=== PATIENT | male | born 1950 | race Caucasian/White ===

== ENCOUNTER 2019-10-28 08:14 | Emergency (ER) | payer BC, MEDICARE ==
--- NOTE | 2019-10-28 08:50 | EDM.PDOC ---
ED HPI GENERAL MEDICAL PROBLEM - General Chief Complaint: Chest Pain Stated Complaint: RIGHT RIB PAIN Time Seen by Provider: 10/28/19 08:40 - History of Present Illness INITIAL COMMENTS - FREE TEXT/NARRATIVE: 69-year-old male presents the emergency room with left lower chest and upper abdominal pain This pain started last evening. It is aggravated by deep breathing and coughing. The patient has had bronchitis for a little over a week. He saw his regular provider last week who started him on an antibiotic some prednisone and cough syrup. His cough is getting better but now is developed this left anterior chest and upper abdominal pain. Patient has no history of coronary artery disease and otherwise denies any significant medical issues. Patient denies any fevers has not had any nausea vomiting the patient or diarrhea. Patient thinks he is in pretty good health otherwise. Left Lower Chest Pain Score (Numeric/FACES): 10 - Related Data Allergies Allergy/AdvReac Type Severity Reaction Status Date / Time No Known Allergies Allergy Verified 10/28/19 08:27 Home Meds: Home Meds Acetaminophen [Tylenol] 10/28/19 [History] Acetaminophen/HYDROcodone [[place] 325-5 MG] 1 - 2 tab PO Q6H PRN #20 tablet 10/28 [Rx] Amoxicillin 10/28/19 [History] Codeine/Promethazine [Phenergan with Codeine] 10/28/19 [History] predniSONE 40 mg PO ASDIRECTED #10 tab 10/28/19 [Rx] predniSONE [Prednisone] 10/28/19 [History] Past Medical History - Past Health History Medical/Surgical History: Denies Medical/Surgical History Respiratory History: Reports: Bronchitis, Recurrent - Past Surgical History Musculoskeletal Surgical History: Reports: Joint Replacement, Knee Replacement, Shoulder Replacement, Shoulder Surgery Social & Family History - Tobacco Use Smoking Status *Q: Former Smoker Used Tobacco, but Quit: Yes Month/Year Tobacco Last Used: 1 ED ROS GENERAL - Review of Systems Review Of Systems: See Below Constitutional: Reports: No Symptoms, Weight Gain Respiratory: Reports: Pleuritic Chest Pain, Cough. Denies: Shortness of Breath , Wheezing, Sputum Cardiovascular: Reports: Chest Pain (Usually worse with coughing and change position) Endocrine: Reports: No Symptoms GI/Abdominal: Reports: Abdominal Pain. Denies: Constipation, Diarrhea, Nausea, Vomiting : Reports: No Symptoms Musculoskeletal: Reports: Other (Chest wall pain) Skin: Reports: No Symptoms Neurological: Reports: No Symptoms ED EXAM, GENERAL - Physical Exam Exam: See Below Exam Limited By: No Limitations General Appearance: Alert, No Apparent Distress Head: Atraumatic, Normocephalic Neck: Normal Inspection, Supple, Non-Tender, Full Range of Motion. No: Lymphadenopathy (L), Lymphadenopathy (R) Respiratory/Chest: No Respiratory Distress, Lungs Clear, Normal Breath Sounds, Other (Patient of the chest show some discomfort left lower ribs lateral position and moving anterior however anterior rib palpation does not elicit the pain) Cardiovascular: Regular Rate, Rhythm, No Edema, Systolic Murmur (He has a 2/6 systolic murmur heard in the inferior left sternal border along the lower margin of the heart to the apex) GI/Abdominal: Normal Bowel Sounds, Soft, Tender (He has some tenderness in the left upper quadrant below the ribs.), Other (Patient has significant obesity). No: Guarding, Rigid, Rebound Back Exam: Normal Inspection. No: CVA Tenderness (L), CVA Tenderness (R) Extremities: No Pedal Edema, Other (No calf tenderness) Course - Vital Signs Last Recorded V/S: Last Vital Signs Temp 36.9 C 10/28/19 08:28 Pulse 81 10/28/19 08:28 Resp 16 10/28/19 08:28 BP 188/106 H 10/28/19 08:28 Pulse Ox 96 10/28/19 08:28 - Orders/Labs/Meds Orders: Active Orders 24 hr Category Date Time Status EKG Documentation Completion [RC] STAT Care 10/28/19 08:52 Active Ang Chest [CT] Stat Exams 10/28/19 11:07 Taken Sodium Chloride 0.9% [Normal Saline] 100 ml Med 10/28/19 11:30 Active IV ASDIRECTED Sodium Chloride 0.9% [Saline Flush] Med 10/28/19 11:19 Active 10 ml FLUSH ONETIME PRN Medication Orders Sodium Chloride (Normal Saline) 100 mls @ 60 mls/hr IV ASDIRECTED KATHERYN Last Admin: 10/28/19 11:26 Dose: 60 mls/hr Sodium Chloride (Saline Flush) 10 ml FLUSH ONETIME PRN PRN Reason: Keep Vein Open Last Admin: 10/28/19 11:26 Dose: 10 ml Labs: Laboratory Tests 10/28/19 10/28/19 10/28/19 Range/Units 09:22 09:22 09:22 WBC 5.45 (4.23-9.07) K/mm3 RBC 4.98 (4.63-6.08) M/mm3 Hgb 15.0 (13.7-17.5) gm/dl Hct 47.5 (40.1-51.0) % MCV 95.4 H (79.0-92.2) fl MCH 30.1 (25.7-32.2) pg MCHC 31.6 L (32.2-35.5) g/dl RDW Std Deviation 46.9 H (35.1-43.9) fL Plt Count 205 (163-337) K/mm3 MPV 8.8 L (9.4-12.3) fl Neut % (Auto) 74.0 H (34.0-67.9) % Lymph % (Auto) 17.4 L (21.8-53.1) % Ida % (Auto) 7.3 (5.3-12.2) % Eos % (Auto) 0.9 (0.8-7.0) Baso % (Auto) 0.2 (0.1-1.2) % Neut # (Auto) 4.03 (1.78-5.38) K/mm3 Lymph # (Auto) 0.95 L (1.32-3.57) K/mm3 Ida # (Auto) 0.40 (0.30-0.82) K/mm3 Eos # (Auto) 0.05 (0.04-0.54) K/mm3 Baso # (Auto) 0.01 (0.01-0.08) K/mm3 PT 10.6 (9.7-12.0) SECONDS INR 0.97 APTT 26 (22-31) SECONDS D-Dimer, Quantitative (0.19-0.50) mg/L Sodium 136 (136-145) mEq/L Potassium 4.6 (3.5-5.1) mEq/L Chloride 103 (98-107) mEq/L Carbon Dioxide 25 (21-32) mEq/L Anion Gap 12.6 (5-15) BUN 27 H (7-18) mg/dL Creatinine 1.0 (0.7-1.3) mg/dL Est Cr Clr Drug Dosing TNP Estimated GFR (MDRD) > 60 (>60) mL/min BUN/Creatinine Ratio 27.0 H (14-18) Glucose 122 H (80-115) mg/dL Calcium 8.6 (8.5-10.1) mg/dL Total Bilirubin 0.5 (0.2-1.0) mg/dL AST 11 L (15-37) U/L ALT 21 (16-63) U/L Alkaline Phosphatase 102 (46-116) U/L Troponin I < 0.017 (0.00-0.056) ng/mL Total Protein 7.4 (6.4-8.2) g/dl Albumin 3.6 (3.4-5.0) g/dl Globulin 3.8 gm/dL Albumin/Globulin Ratio 1.0 (1-2) Lipase 87 (73-393) U/L Urine Color (Yellow) Urine Appearance (Clear) Urine pH (5.0-8.0) Ur Specific [place] (1.005-1.030) Urine Protein (Negative) Urine Glucose (UA) (Negative) Urine Ketones (Negative) Urine Occult Blood (Negative) Urine Nitrite (Negative) Urine Bilirubin (Negative) Urine Urobilinogen (0.2-1.0) Ur Leukocyte Esterase (Negative) 10/28/19 10/28/19 Range/Units 09:22 10:57 WBC (4.23-9.07) K/mm3 RBC (4.63-6.08) M/mm3 Hgb (13.7-17.5) gm/dl Hct (40.1-51.0) % MCV (79.0-92.2) fl MCH (25.7-32.2) pg MCHC (32.2-35.5) g/dl RDW Std Deviation (35.1-43.9) fL Plt Count (163-337) K/mm3 MPV (9.4-12.3) fl Neut % (Auto) (34.0-67.9) % Lymph % (Auto) (21.8-53.1) % Ida % (Auto) (5.3-12.2) % Eos % (Auto) (0.8-7.0) Baso % (Auto) (0.1-1.2) % Neut # (Auto) (1.78-5.38) K/mm3 Lymph # (Auto) (1.32-3.57) K/mm3 Ida # (Auto) (0.30-0.82) K/mm3 Eos # (Auto) (0.04-0.54) K/mm3 Baso # (Auto) (0.01-0.08) K/mm3 PT (9.7-12.0) SECONDS INR APTT (22-31) SECONDS D-Dimer, Quantitative 1.19 H (0.19-0.50) mg/L Sodium (136-145) mEq/L Potassium (3.5-5.1) mEq/L Chloride (98-107) mEq/L Carbon Dioxide (21-32) mEq/L Anion Gap (5-15) BUN (7-18) mg/dL Creatinine (0.7-1.3) mg/dL Est Cr Clr Drug Dosing Estimated GFR (MDRD) (>60) mL/min BUN/Creatinine Ratio (14-18) Glucose (80-115) mg/dL Calcium (8.5-10.1) mg/dL Total Bilirubin (0.2-1.0) mg/dL AST (15-37) U/L ALT (16-63) U/L Alkaline Phosphatase (46-116) U/L Troponin I (0.00-0.056) ng/mL Total Protein (6.4-8.2) g/dl Albumin (3.4-5.0) g/dl Globulin gm/dL Albumin/Globulin Ratio (1-2) Lipase (73-393) U/L Urine Color Yellow (Yellow) Urine Appearance Clear (Clear) Urine pH 6.0 (5.0-8.0) Ur Specific [place] > or = 1.030 (1.005-1.030) Urine Protein Negative (Negative) Urine Glucose (UA) Negative (Negative) Urine Ketones Negative (Negative) Urine Occult Blood Negative (Negative) Urine Nitrite Negative (Negative) Urine Bilirubin Negative (Negative) Urine Urobilinogen 0.2 (0.2-1.0) Ur Leukocyte Esterase Negative (Negative) Meds: Medications Generic Name Dose Route Start Last Admin Trade Name Freq PRN Reason Stop Dose Admin Sodium Chloride 100 mls @ 60 mls/hr 10/28/19 11:30 10/28/19 11:26 Normal Saline IV 60 mls/hr ASDIRECTED KATHERYN Administration Sodium Chloride 10 ml 10/28/19 11:19 10/28/19 11:26 Saline Flush FLUSH 10 ml ONETIME PRN Administration Keep Vein Open Discontinued Medications Generic Name Dose Route Start Last Admin Trade Name Freq PRN Reason Stop Dose Admin Sodium Chloride 500 mls @ 999 mls/hr 10/28/19 11:06 10/28/19 11:16 Normal Saline IV 10/28/19 11:36 999 mls/hr .BOLUS ONE Administration Iopamidol 100 ml 10/28/19 11:19 10/28/19 11:26 [id number] (76%) IVPUSH 10/28/19 11:20 100 ml ONETIME ONE Administration Iopamidol 50 ml 10/28/19 11:27 10/28/19 11:29 Isovue-370 (76%) IVPUSH 10/28/19 11:28 50 ml ONETIME ONE Administration - Re-Assessments/Exams Free Text/Narrative Re-Assessment/Exam: 10/28/19 12:31 Laboratory evaluation does not really show any smoking cons except his d-dimer was a little elevated this was followed up with a chest CTA which again showed cardiomegaly and some aortic valvular disease however no PE or right heart strain. The patient is started prednisone 10 mg twice a day yesterday M&Ms stopped this him and put on 40 mg now then 40 mg a day for the next 5 days. And then have him stop this and will give him a few hydrocodone for the pain with close follow-up in the clinic and with his cardiomegaly I believe he is best served to have an echo done get a better assessment of was going on with his valvular heart disease has had a murmur all his life CT shows evidence of aortic valvular disease. A stress test should also be strongly considered. Departure - Departure Time of Disposition: 12:36 Disposition: Home, Self-Care 01 Clinical Impression: Chest pain, pleuritic, Valvular heart disease, Cardiomegaly - Discharge Information Prescriptions: Acetaminophen/HYDROcodone [[place] 325-5 MG] 1 - 2 tab PO Q6H PRN #20 tablet PRN Reason: Pain predniSONE 40 mg PO ASDIRECTED #10 tab Referrals: Malena Mercado NP [Primary Care Provider] - Forms: ED Department Discharge, ED Return to Work/School Form Additional Instructions: Turn to the emergency room with any questions problems or worsening symptoms. Follow-up with your regular provider in the middle of this next week. Discuss possible stress testing. I strongly suggest you get a echocardiogram to assess your cardiomegaly and potential valvular disease. Use the pain medication as directed. Stop the prednisone you started yesterday I am gave you a prescription for a little stronger dose. Take the new prescription in the morning only just before breakfast. Sepsis Event Note - Evaluation Sepsis Screening Result: No Definite Risk - Focused Exam Vital Signs: Vital Signs Temp Pulse Resp BP Pulse Ox 10/28/19 08:28 36.9 C 81 16 188/106 H 96 Date Exam was Performed: 10/28/19 Time Exam was Performed: 12:30 - My Orders Last 24 Hours: My Active Orders 10/28/19 08:52 EKG Documentation Completion [RC] STAT 10/28/19 11:07 Ang Chest [CT] Stat 10/28/19 11:19 Sodium Chloride 0.9% [Saline Flush] 10 ml FLUSH ONETIME PRN 10/28/19 11:30 Sodium Chloride 0.9% [Normal Saline] 100 ml IV ASDIRECTED - Assessment/Plan Last 24 Hours: My Active Orders 10/28/19 08:52 EKG Documentation Completion [RC] STAT 10/28/19 11:07 Ang Chest [CT] Stat 10/28/19 11:19 Sodium Chloride 0.9% [Saline Flush] 10 ml FLUSH ONETIME PRN 10/28/19 11:30 Sodium Chloride 0.9% [Normal Saline] 100 ml IV ASDIRECTED
--- NOTE | 2019-10-28 09:37 | CR ---
Chest: 2 views of the chest were obtained. Comparison: Prior chest x-ray of 11/24/14. Heart is enlarged. Tortuous or aneurysmal aorta is seen. Pulmonary vessels are increased. Lungs otherwise are clear. Prior right shoulder surgery is noted. Bony structures are otherwise unremarkable. Impression: 1. Cardiomegaly with pulmonary vascular congestion felt compatible with very mild CHF. 2. Tortuous or aneurysmal aorta. 3. Other findings which are believed to be incidental. Diagnostic code #3 Study was dictated in [place] Standard Time
[2019-10-28] MEDS ORDERED: Sodium Chloride 0.9% 500 ML IV ONE (11:06)
[2019-10-28] MEDS ORDERED: Sodium Chloride 0.9% 10 ML Syringe FLUSH PRN (11:19)
[2019-10-28] MEDS ORDERED: Iopamidol 755 Mg/ML 100 ML Bottle IVPUSH ONE (11:19)
[2019-10-28] MEDS ORDERED: Iopamidol 755 MG/ML 50 ML Bottle IVPUSH ONE (11:27)
[2019-10-28] MEDS ORDERED: Sodium Chloride 0.9% 100 ML IV SCH (11:30)
[2019-10-28 13:06] VITALS: BP 158/89; PULSE 82
--- NOTE | 2019-10-28 15:24 | CT ---
CT chest Technique: Multiple axial sections were obtained from above the lung apices inferiorly through the lung bases. Intravenous contrast was utilized. Study has been performed as a pulmonary angiogram protocol. Comparison: No prior chest CT, previous chest x-ray performed on the same day at the time 8:52 AM. Findings: Aorta shows no aneurysm. No dissection is seen within the thoracic aorta. Heart is mildly enlarged. Mild coronary artery calcification is seen. Visualized upper abdominal structures shows a large cyst within the upper left kidney measuring 8.7 cm. Nothing acute is appreciated within the visualized upper abdominal structures. Mediastinum and hilar region show no adenopathy or mass. Pulmonary arteries are moderately well opacified. No filling defects are seen to indicate pulmonary embolism. Lungs show slight haziness most likely relating to poor inspiratory study. No definite consolidating parenchymal densities are seen. No pleural effusions are seen. Bone window settings were reviewed which show scattered degenerative change within the spine. No acute osseous finding is appreciated. Calcification is seen within the aortic annulus. Impression: 1. Heart is mildly enlarged with mild coronary artery calcification. Mild aortic annulus calcification is also noted. 2. No findings of pulmonary embolism. 3. Other findings as noted above believed to be incidental. 4. Overall, nothing acute is appreciated. Diagnostic code #3 This report was dictated in [place] Standard Time I agree with preliminary report from [facility], finalized on 10/28/19, 12:51 PM Central Time
== END 2019-10-28 13:04 | disposition home or self-care (01) ==
LOC: JD.ED 08:14
DX: I51.7 Cardiomegaly (principal); I38 Endocarditis, valve unspecified; Z87.891 Personal history of nicotine dependence
CPT/HCPCS: 36415; 71046; 71275; 80053; 81003; 83690; 84484; 85025; 85379; 85610; 85730; 93005; 96360; 96361; 99284; J7030; J7050; Q9967; 93010

== ENCOUNTER 2020-01-17 06:00 | Emergency (ER) | payer BC, MEDICARE ==
--- NOTE | 2020-01-17 06:32 | EDM.PDOC ---
ED HPI GENERAL MEDICAL PROBLEM - General Chief Complaint: Genitourinary Problem Stated Complaint: UNABLE TO URINATE Time Seen by Provider: 01/17/20 06:32 - History of Present Illness INITIAL COMMENTS - FREE TEXT/NARRATIVE: 69-year-old male presents to the emergency room with inability to void. Apparently the patient has had problems with this on and on and off basis. He is never required a catheter. He states that he has had problems emptying then eventually would straighten itself out. At this time it has not. The patient early yesterday evening noticed difficulty voiding he would dribble some but as he developed some lower abdominal discomfort this became worse and now nothing will come out. Patient is never been treated for prostate problems currently he is not taking any routine medications. Past medical history significant mostly for orthopedic surgeries. He has not had any chest pain chest pressure or breathing difficulties or shortness of breath no nausea no vomiting prior to this history of present illness he has not had any burning or frequency with urination. Lower Abdomen Pain Score (Numeric/FACES): 5 - Related Data Allergies Allergy/AdvReac Type Severity Reaction Status Date / Time No Known Allergies Allergy Verified 01/17/20 06:10 Home Meds: Home Meds Tamsulosin [Tamsulosin 24 Hr] 0.4 mg PO Q24H #30 cap.er 01/17/20 [Rx] Past Medical History - Past Health History Medical/Surgical History: Denies Medical/Surgical History Respiratory History: Reports: Bronchitis, Recurrent - Past Surgical History Musculoskeletal Surgical History: Reports: Joint Replacement, Knee Replacement, Shoulder Replacement, Shoulder Surgery Social & Family History - Tobacco Use Smoking Status *Q: Never Smoker Second Hand Smoke Exposure: No - Recreational Drug Use Recreational Drug Use: No ED ROS GENERAL - Review of Systems Review Of Systems: See Below Constitutional: Reports: No Symptoms. Denies: Fever, Chills HEENT: Reports: No Symptoms Respiratory: Reports: No Symptoms Cardiovascular: Reports: No Symptoms Endocrine: Reports: No Symptoms GI/Abdominal: Denies: Constipation, Diarrhea, Nausea, Vomiting : Reports: No Symptoms Musculoskeletal: Reports: No Symptoms Skin: Reports: No Symptoms Neurological: Reports: No Symptoms ED EXAM, RENAL/ - Physical Exam Exam: See Below Exam Limited By: No Limitations General Appearance: Alert, No Apparent Distress, Obese Head: Atraumatic, Normocephalic Neck: Normal Inspection, Supple, Non-Tender, Full Range of Motion Respiratory/Chest: No Respiratory Distress, Lungs Clear, Normal Breath Sounds Cardiovascular: Regular Rate, Rhythm, No Edema, No Murmur GI/Abdominal: Normal Bowel Sounds, Soft, Other (He is got some midline lower abdominal discomfort otherwise unremarkable exam his body habitus does lead to some limitations to his abdominal exam however) Course - Vital Signs Last Recorded V/S: Last Vital Signs Temp 36.2 C 01/17/20 06:07 Pulse 74 01/17/20 06:07 Resp 20 01/17/20 06:07 BP 180/98 H 01/17/20 06:07 Pulse Ox 95 01/17/20 06:07 - Orders/Labs/Meds Orders: Active Orders 24 hr Category Date Time Status Bladder Scan [RC] ASDIRECTED Care 01/17/20 06:25 Active [place] Catheter Insertion [Insert Urinary Catheter] [OM. Care 01/17/20 06:45 Ordered PC] Q24H Insert [place] Catheter [Insert Urinary Catheter] [OM.PC] Care 01/17/20 06:45 Ordered Q24H Urinary Catheter Assessment [RC] ASDIRECTED Care 01/17/20 06:44 Active Urinary Catheter Assessment [RC] ASDIRECTED Care 01/17/20 06:44 Active UA W/MICROSCOPIC [URIN] Stat Lab 01/17/20 06:50 Results Labs: Laboratory Tests 01/17/20 Range/Units 06:50 Urine Color Yellow (Yellow) Urine Appearance Clear (Clear) Urine pH 6.5 (5.0-8.0) Ur Specific [place] 1.025 (1.005-1.030) Urine Protein Negative (Negative) Urine Glucose (UA) Negative (Negative) Urine Ketones Negative (Negative) Urine Occult Blood Trace-intact H (Negative) Urine Nitrite Negative (Negative) Urine Bilirubin Negative (Negative) Urine Urobilinogen 1.0 (0.2-1.0) Ur Leukocyte Esterase Negative (Negative) Meds: Medications Discontinued Medications Generic Name Dose Route Start Last Admin Trade Name Freq PRN Reason Stop Dose Admin Tamsulosin HCl 0.4 mg 01/17/20 06:45 01/17/20 07:13 Flomax PO 01/17/20 06:46 0.4 mg ONETIME ONE Administration - Re-Assessments/Exams Free Text/Narrative Re-Assessment/Exam: 01/17/20 06:57 Patient was bladder scanned yielding a volume of [address] a indwelling catheter and see if we can get him feeling better the patient will be started on Flomax 01/17/20 07:05 The patient had a #14 Cou[place] catheter placed and has well over 500 cc out at this time patient feels much better. 01/17/20 07:19 Urinalysis shows some trace blood negative for leukocyte Estrace or nitrates. At this point we will discharge home with catheter in place Departure - Departure Time of Disposition: 07:19 Disposition: Home, Self-Care 01 Clinical Impression: Urinary obstruction - Discharge Information Prescriptions: Tamsulosin [Tamsulosin 24 Hr] 0.4 mg PO Q24H #30 cap.er Referrals: Malena Mercado NP [Primary Care Provider] - Forms: ED Department Discharge Additional Instructions: Return to the emergency room with any questions problems or worsening symptoms. You have been started on a medication to help shrink up your prostate and to help relax your urinary tract. Take these once daily your first dose was given here in the emergency room. Follow-up with your regular healthcare provider on Tuesday of next week to have the catheter removed. Sepsis Event Note - Evaluation Sepsis Screening Result: No Definite Risk - Focused Exam Vital Signs: Vital Signs Temp Pulse Resp BP Pulse Ox 01/17/20 06:07 36.2 C 74 20 180/98 H 95 Date Exam was Performed: 01/17/20 Time Exam was Performed: 07:19 - My Orders Last 24 Hours: My Active Orders 01/17/20 06:25 Bladder Scan [RC] ASDIRECTED 01/17/20 06:44 Urinary Catheter Assessment [RC] ASDIRECTED Urinary Catheter Assessment [RC] ASDIRECTED 01/17/20 06:45 [place] Catheter Insertion [Insert Urinary Catheter] [OM.PC] Q24H Insert [place] Catheter [Insert Urinary Catheter] [OM.PC] Q24H 01/17/20 06:50 UA W/MICROSCOPIC [URIN] Stat - Assessment/Plan Last 24 Hours: My Active Orders 01/17/20 06:25 Bladder Scan [RC] ASDIRECTED 01/17/20 06:44 Urinary Catheter Assessment [RC] ASDIRECTED Urinary Catheter Assessment [RC] ASDIRECTED 01/17/20 06:45 [place] Catheter Insertion [Insert Urinary Catheter] [OM.PC] Q24H Insert [place] Catheter [Insert Urinary Catheter] [OM.PC] Q24H 01/17/20 06:50 UA W/MICROSCOPIC [URIN] Stat
[2020-01-17] MEDS ORDERED: Tamsulosin 0.4 MG Cap.ER PO ONE (06:45)
[2020-01-17 08:29] VITALS: BP 154/103; PULSE 72
== END 2020-01-17 08:03 | disposition home or self-care (01) ==
LOC: JD.ED 06:00
DX: N13.9 Obstructive and reflux uropathy, unspecified (principal)
CPT/HCPCS: 51702; 51798; 81001; 99282; 99283; A9270-GY

== ENCOUNTER 2020-01-17 14:18 | Emergency (ER) | payer BC, MEDICARE ==
[2020-01-17 14:25] VITALS: BP 175/90; PULSE 84
--- NOTE | 2020-01-17 14:33 | EDM.PDOC ---
ED HPI GENERAL MEDICAL PROBLEM - General Chief Complaint: Genitourinary Problem Stated Complaint: LEAKING CATHETER Time Seen by Provider: 01/17/20 14:20 Source of Information: Reports: Patient History Limitations: Reports: No Limitations - History of Present Illness INITIAL COMMENTS - FREE TEXT/NARRATIVE: Patient is a 69-year-old male who presents with complaints of leaking from his Vallejo catheter. He was seen in the emergency department this morning for urinary retention and a 14 Romanian Vallejo catheter was inserted. He states that he went home and fell asleep in his recliner. When he woke up he had urine saturated on his pants and underwear. There was also urine in the leg bag. He denies any blood in his urine. He also states that the Vallejo catheter has been somewhat uncomfortable. He has had a catheter in the past and states that this 1 seems more uncomfortable than he remembers. - Related Data Allergies Allergy/AdvReac Type Severity Reaction Status Date / Time No Known Allergies Allergy Verified 01/17/20 14:26 Home Meds: Home Meds Tamsulosin [Tamsulosin 24 Hr] 0.4 mg PO Q24H #30 cap.er 01/17/20 [Rx] Past Medical History - Past Health History Medical/Surgical History: Denies Medical/Surgical History Respiratory History: Reports: Bronchitis, Recurrent - Past Surgical History Musculoskeletal Surgical History: Reports: Joint Replacement, Knee Replacement, Shoulder Replacement, Shoulder Surgery Social & Family History - Tobacco Use Smoking Status *Q: Never Smoker Second Hand Smoke Exposure: No - Caffeine Use Caffeine Use: Reports: None - Recreational Drug Use Recreational Drug Use: No ED ROS GENERAL - Review of Systems Review Of Systems: Comprehensive ROS is negative, except as noted in HPI. ED EXAM, RENAL/ - Physical Exam Exam: See Below Exam Limited By: No Limitations General Appearance: Alert, WD/WN, No Apparent Distress Respiratory/Chest: No Respiratory Distress, Lungs Clear, Normal Breath Sounds, No Accessory Muscle Use, Chest Non-Tender Cardiovascular: Normal Peripheral Pulses, Regular Rate, Rhythm, No Edema, No Gallop, No JVD, No Murmur, No Rub Neurological: Alert, Oriented, CN II-XII Intact, Normal Cognition, Normal Gait, Normal Reflexes, No Motor/Sensory Deficits Psychiatric: Normal Affect, Normal Mood Skin Exam: Warm, Dry, Intact, Normal Color, No Rash Course - Vital Signs Last Recorded V/S: Last Vital Signs Temp 97.4 F 01/17/20 14:23 Pulse 84 01/17/20 14:23 Resp 19 01/17/20 14:23 BP 175/90 H 01/17/20 14:23 Pulse Ox 93 L 01/17/20 14:23 - Orders/Labs/Meds Orders: Active Orders 24 hr Category Date Time Status Insert Vallejo Catheter [Insert Urinary Catheter] [OM.PC] Care 01/17/20 14:45 Ordered Q24H Urinary Catheter Assessment [RC] ASDIRECTED Care 01/17/20 14:32 Active Meds: Medications Discontinued Medications Generic Name Dose Route Start Last Admin Trade Name Freq PRN Reason Stop Dose Admin Lidocaine HCl 10 ml 01/17/20 15:18 01/17/20 15:38 Xylocaine 2% Jelly MUCMEM 01/17/20 15:19 10 ml ONETIME ONE Administration - Re-Assessments/Exams Free Text/Narrative Re-Assessment/Exam: 01/17/20 16:07 Vallejo catheter was removed and replaced with a slightly larger, 16 Romanian, Vallejo catheter. Catheter is flowing well. Patient states that it feels much more comfortable than the previous catheter. We will discharge him home with instructions to return if he encounters any difficulties. Discharge instructions as documented. Departure - Departure Time of Disposition: 16:07 Disposition: Home, Self-Care 01 Condition: Good Clinical Impression: Vallejo catheter problem Qualifiers: Encounter type: initial encounter Qualified Code(s): T83.9XXA - Unspecified complication of genitourinary prosthetic device, implant and graft, initial encounter - Discharge Information *PRESCRIPTION DRUG MONITORING PROGRAM REVIEWED*: No *COPY OF PRESCRIPTION DRUG MONITORING REPORT IN PATIENT CATHLEEN: No Instructions: Indwelling Urinary Catheter Care, Adult Referrals: Malena Mercado NP [Primary Care Provider] - Forms: ED Department Discharge, ED Return to Work/School Form Additional Instructions: You were seen in the emergency department today because your Vallejo catheter was leaking. The catheter was removed and replaced with a slightly larger catheter tube. It has been flowing well since insertion. If you experience any further difficulties or if the catheter begins to leak, please not hesitate to return to the emergency department. Sepsis Event Note - Evaluation Sepsis Screening Result: No Definite Risk - Focused Exam Vital Signs: Vital Signs Temp Pulse Resp BP Pulse Ox 01/17/20 14:23 97.4 F 84 19 175/90 H 93 L Date Exam was Performed: 01/17/20 Time Exam was Performed: 19:19 - My Orders Last 24 Hours: My Active Orders 01/17/20 14:32 Urinary Catheter Assessment [RC] ASDIRECTED 01/17/20 14:45 Insert Vallejo Catheter [Insert Urinary Catheter] [OM.PC] Q24H - Assessment/Plan Last 24 Hours: My Active Orders 01/17/20 14:32 Urinary Catheter Assessment [RC] ASDIRECTED 01/17/20 14:45 Insert Vallejo Catheter [Insert Urinary Catheter] [OM.PC] Q24H
[2020-01-17] MEDS ORDERED: Lidocaine 2% Jelly 10 ML Urojet MUCMEM ONE (15:18)
== END 2020-01-17 16:20 | disposition home or self-care (01) ==
LOC: JD.ED 14:18
DX: T83.038A Leakage of other urinary catheter, initial encounter (principal)
CPT/HCPCS: 51702; 99282; 99283

== ENCOUNTER 2020-03-15 16:47 | Emergency (ER) | payer MEDICARE, BC ==
[2020-03-15 16:57] VITALS: BP 205/108; PULSE 81
[2020-03-15] MEDS ORDERED: Lidocaine 2% Jelly 10 ML Urojet MUCMEM ONE (17:07)
--- NOTE | 2020-03-15 17:20 | EDM.PDOC ---
ED HPI GENERAL MEDICAL PROBLEM - General Chief Complaint: Genitourinary Problem Stated Complaint: UNABLE TO URINATE Time Seen by Provider: 03/15/20 16:55 Source of Information: Reports: Patient History Limitations: Reports: No Limitations - History of Present Illness INITIAL COMMENTS - FREE TEXT/NARRATIVE: Patient is a 69-year-old male presented to the ER with complaints of acute urinary retention. He had surgery put on the nerves in his left arm yesterday, and since that time he has been unable to void other than small amount of dribbling. He does have a history of BPH requiring indwelling catheter in the past, however states once he started Flomax his symptoms resolved. His last good void was around 10:00 tomorrow which was before surgery. At this time he feels like his bladder is full is uncomfortable. He does not think he had a urinary catheter during surgery, however he did have full sedation. He has an appointment scheduled with his urologist on Tuesday this coming week. Lower Abdomen Pain Score (Numeric/FACES): 9 - Related Data Allergies Allergy/AdvReac Type Severity Reaction Status Date / Time No Known Allergies Allergy Verified 03/15/20 16:57 Home Meds: Home Meds Tamsulosin [Tamsulosin 24 Hr] 0.4 mg PO Q24H #30 cap.er 01/17/20 [Rx] Cyclobenzaprine HCl 10 mg PO DAILY 03/15/20 [History] Meloxicam 15 mg PO DAILY 03/15/20 [History] Past Medical History - Past Health History Medical/Surgical History: Denies Medical/Surgical History Respiratory History: Reports: Bronchitis, Recurrent - Past Surgical History Musculoskeletal Surgical History: Reports: Joint Replacement, Knee Replacement, Shoulder Replacement, Shoulder Surgery Social & Family History - Tobacco Use Smoking Status *Q: Former Smoker Used Tobacco, but Quit: Yes Month/Year Tobacco Last Used: 25 years - Caffeine Use Caffeine Use: Reports: None - Recreational Drug Use Recreational Drug Use: No ED ROS GENERAL - Review of Systems Review Of Systems: Comprehensive ROS is negative, except as noted in HPI. ED EXAM, RENAL/ - Physical Exam Exam: See Below Exam Limited By: No Limitations General Appearance: Alert, WD/WN, No Apparent Distress Respiratory/Chest: No Respiratory Distress, Lungs Clear, Normal Breath Sounds, No Accessory Muscle Use, Chest Non-Tender Cardiovascular: Normal Peripheral Pulses, Regular Rate, Rhythm, No Edema, No Gallop, No JVD, No Murmur, No Rub GI/Abdominal: Normal Bowel Sounds, Soft, Non-Tender, No Organomegaly, No Distention, No Abnormal Bruit, No Mass (Male) Exam: Suprapubic Fullness (Palpable bladder. Tenderness.) Neurological: Alert, Oriented, CN II-XII Intact, Normal Cognition, Normal Gait, Normal Reflexes, No Motor/Sensory Deficits Psychiatric: Normal Affect, Normal Mood Skin Exam: Warm, Dry, Intact, Normal Color, No Rash Course - Vital Signs Last Recorded V/S: Last Vital Signs Temp 97.6 F 03/15/20 16:55 Pulse 81 03/15/20 16:55 Resp 16 03/15/20 16:55 BP 205/108 H 03/15/20 16:55 Pulse Ox - Orders/Labs/Meds Labs: Laboratory Tests 03/15/20 03/15/20 03/15/20 Range/Units 17:35 17:38 17:38 WBC 5.53 (4.23-9.07) K/mm3 RBC 4.65 (4.63-6.08) M/mm3 Hgb 13.9 (13.7-17.5) gm/dl Hct 44.2 (40.1-51.0) % MCV 95.1 H (79.0-92.2) fl MCH 29.9 (25.7-32.2) pg MCHC 31.4 L (32.2-35.5) g/dl RDW Std Deviation 46.4 H (35.1-43.9) fL Plt Count 181 (163-337) K/mm3 MPV 8.9 L (9.4-12.3) fl Neut % (Auto) 59.3 (34.0-67.9) % Lymph % (Auto) 27.5 (21.8-53.1) % [place] % (Auto) 9.9 (5.3-12.2) % Eos % (Auto) 2.7 (0.8-7.0) Baso % (Auto) 0.4 (0.1-1.2) % Neut # (Auto) 3.28 (1.78-5.38) K/mm3 Lymph # (Auto) 1.52 (1.32-3.57) K/mm3 [place] # (Auto) 0.55 (0.30-0.82) K/mm3 Eos # (Auto) 0.15 (0.04-0.54) K/mm3 Baso # (Auto) 0.02 (0.01-0.08) K/mm3 Sodium 141 (136-145) mEq/L Potassium 4.3 (3.5-5.1) mEq/L Chloride 107 (98-107) mEq/L Carbon Dioxide 26 (21-32) mEq/L Anion Gap 12.3 (5-15) BUN 25 H (7-18) mg/dL Creatinine 1.0 (0.7-1.3) mg/dL Est Cr Clr Drug Dosing 71.68 mL/min Estimated GFR (MDRD) > 60 (>60) mL/min BUN/Creatinine Ratio 25.0 H (14-18) Glucose 107 (80-115) mg/dL Calcium 8.4 L (8.5-10.1) mg/dL Total Bilirubin 0.3 (0.2-1.0) mg/dL AST 9 L (15-37) U/L ALT 16 (16-63) U/L Alkaline Phosphatase 90 (46-116) U/L Total Protein 6.7 (6.4-8.2) g/dl Albumin 3.5 (3.4-5.0) g/dl Globulin 3.2 gm/dL Albumin/Globulin Ratio 1.1 (1-2) Urine Color Yellow (Yellow) Urine Appearance Clear (Clear) Urine pH 5.5 (5.0-8.0) Ur Specific [place] > or = 1.030 (1.005-1.030) Urine Protein Negative (Negative) Urine Glucose (UA) Negative (Negative) Urine Ketones Negative (Negative) Urine Occult Blood 2+ H (Negative) Urine Nitrite Negative (Negative) Urine Bilirubin Negative (Negative) Urine Urobilinogen 0.2 (0.2-1.0) Ur Leukocyte Esterase Negative (Negative) Urine RBC 20-30 H (0-5) /hpf Urine WBC 0-5 (0-5) /hpf Ur Epithelial Cells 0-5 (0-5) /hpf Urine Bacteria Few (FEW) /hpf Urine Mucus Few (FEW) /hpf Meds: Medications Discontinued Medications Generic Name Dose Route Start Last Admin Trade Name Freq PRN Reason Stop Dose Admin Lidocaine HCl 10 ml 07/11/20 17:07 03/15/20 17:25 Xylocaine 2% Jelly MUCMEM 03/15/20 17:08 10 ml ONETIME ONE Administration - Re-Assessments/Exams Free Text/Narrative Re-Assessment/Exam: I had ordered a bladder scan. Bladder scanner was brought over, however the battery was . Patient was quite uncomfortable, therefore we will forego the bladder scan as we are aware that he has a full bladder. Ordered Vallejo catheter insertion. We will also check a CBC, CMP, and urinalysis. 03/15/20 17:36 Vallejo catheter has yielded 700 mils of clear, slightly concentrated urine. Patient is feeling much better. We are awaiting results of labs. 03/15/20 19:01 Otology and urinalysis were normal. We will discharge patient home with a Vallejo catheter and instructions to follow-up with his urologist as scheduled on Tuesday. Discharge instructions as documented. Departure - Departure Time of Disposition: : Disposition: Home, Self-Care 01 Condition: Good Clinical Impression: Retention of urine - Discharge Information *PRESCRIPTION DRUG MONITORING PROGRAM REVIEWED*: No *COPY OF PRESCRIPTION DRUG MONITORING REPORT IN PATIENT CATHLEEN: No Instructions: Indwelling Urinary Catheter Care, Adult Referrals: Malena Mercado NP [Primary Care Provider] - Aurelio Bird MD [Ordering Only Provider] - Forms: ED Department Discharge Additional Instructions: You were seen in the emergency department today for the inability to urinate since your surgery yesterday. A Vallejo catheter was inserted for urinary retention and yielded 700 mL of urine. This did relieve your discomfort. Blood work and urinalysis were done and found to be overall normal. Vallejo catheter has been left in place. Would recommend that this stay in until you follow-up with your urologist on Tuesday. By that time, it will likely be ready to be removed. If you should experience any difficulties or develop any symptoms of concern, please do not hesitate to return to the emergency department. Sepsis Event Note (ED) - Evaluation Sepsis Screening Result: No Definite Risk - Focused Exam Vital Signs: Vital Signs Temp Pulse Resp BP 03/15/20 16:55 97.6 F 81 16 205/108 H
== END 2020-03-15 19:16 | disposition home or self-care (01) ==
LOC: JD.ED 16:47
DX: R33.9 Retention of urine, unspecified (principal); Z87.891 Personal history of nicotine dependence; Z79.899 Other long term (current) drug therapy
CPT/HCPCS: 36415; 51702; 80053; 81001; 85025; 99282; 99283

== ENCOUNTER 2020-03-16 14:33 | Emergency (ER) | payer MEDICARE, BC ==
[2020-03-16 16:18] VITALS: BP 197/117; PULSE 89
--- NOTE | 2020-03-16 16:59 | EDM.PDOC ---
ED HPI GENERAL MEDICAL PROBLEM - General Chief Complaint: Genitourinary Problem Stated Complaint: CATHETER ISSUES Time Seen by Provider: 03/16/20 16:21 Source of Information: Reports: Patient History Limitations: Reports: No Limitations - History of Present Illness INITIAL COMMENTS - FREE TEXT/NARRATIVE: Patient is a 69-year-old male who presents to the emergency department with complaints of urinary retention. A Vallejo catheter was placed in this emergency department yesterday for the symptoms. He states the catheter has been draining well until this morning. Since then he has only had a couple mils of urine out. He feels distended and like his bladder is full. Occasionally has bladder spasms. - Related Data Allergies Allergy/AdvReac Type Severity Reaction Status Date / Time No Known Allergies Allergy Verified 03/16/20 16:18 Home Meds: Home Meds Tamsulosin [Tamsulosin 24 Hr] 0.4 mg PO Q24H #30 cap.er 01/17/20 [Rx] Cyclobenzaprine HCl 10 mg PO DAILY 03/15/20 [History] Meloxicam 15 mg PO DAILY 03/15/20 [History] Past Medical History - Past Health History Medical/Surgical History: Denies Medical/Surgical History Respiratory History: Reports: Bronchitis, Recurrent - Past Surgical History Musculoskeletal Surgical History: Reports: Joint Replacement, Knee Replacement, Shoulder Replacement, Shoulder Surgery Social & Family History - Tobacco Use Smoking Status *Q: Never Smoker - Caffeine Use Caffeine Use: Reports: Tea - Recreational Drug Use Recreational Drug Use: No ED ROS GENERAL - Review of Systems Review Of Systems: Comprehensive ROS is negative, except as noted in HPI. ED EXAM, RENAL/ - Physical Exam Exam: See Below Exam Limited By: No Limitations General Appearance: Alert, WD/WN, No Apparent Distress Respiratory/Chest: No Respiratory Distress, Lungs Clear, Normal Breath Sounds, No Accessory Muscle Use, Chest Non-Tender Cardiovascular: Normal Peripheral Pulses, Regular Rate, Rhythm, No Edema, No Gallop, No JVD, No Murmur, No Rub (Male) Exam: Suprapubic Fullness Neurological: Alert, Oriented, CN II-XII Intact, Normal Cognition, Normal Gait, Normal Reflexes, No Motor/Sensory Deficits Psychiatric: Normal Affect, Normal Mood Skin Exam: Warm, Dry, Intact, Normal Color, No Rash Course - Vital Signs Last Recorded V/S: Last Vital Signs Temp 97.4 F 03/16/20 16:16 Pulse 89 03/16/20 16:16 Resp 16 03/16/20 16:16 BP 197/117 H 03/16/20 16:16 Pulse Ox 93 L 03/16/20 16:16 - Re-Assessments/Exams Free Text/Narrative Re-Assessment/Exam: Patient is a 69-year-old male who presents to the emergency department with his Vallejo catheter not draining appropriately. I did attempt irrigation using sterile saline, however unable to obtain return of saline or urine. Vallejo catheter was removed. Patient attempted to void into a urinal, however was unable to void. New Vallejo catheter 16 Khmer was inserted using sterile technique. Urine did begin to drain and a few small blood clots were noted. 750 mils of urine was drained from the bladder. Urinalysis was done yesterday and found to be normal, therefore we will not recheck this today. We will discharge him home with instructions to return if he has any problems. Departure - Departure Time of Disposition: 16:59 Disposition: Home, Self-Care 01 Condition: Good Clinical Impression: Vallejo catheter problem Qualifiers: Encounter type: initial encounter Qualified Code(s): T83.9XXA - Unspecified complication of genitourinary prosthetic device, implant and graft, initial encounter - Discharge Information *PRESCRIPTION DRUG MONITORING PROGRAM REVIEWED*: No *COPY OF PRESCRIPTION DRUG MONITORING REPORT IN PATIENT CATHLEEN: No Instructions: Indwelling Urinary Catheter Care, Adult Referrals: Malena Mercado NP [Primary Care Provider] - Additional Instructions: You were seen in the emergency department today for your catheter not draining. Catheter was changed in the ER and is now draining well. Recommend that you continue to care for it as previously directed. If you should encounter any further problems, please not hesitate to return to the emergency department. Sepsis Event Note (ED) - Evaluation Sepsis Screening Result: No Definite Risk - Focused Exam Vital Signs: Vital Signs Temp Pulse Resp BP Pulse Ox 03/16/20 16:16 97.4 F 89 16 197/117 H 93 L
== END 2020-03-16 17:10 | disposition home or self-care (01) ==
LOC: JD.ED 14:33
DX: T83.098A Other mechanical complication of other urinary catheter, initial encounter (principal); R33.9 Retention of urine, unspecified; Z79.899 Other long term (current) drug therapy
CPT/HCPCS: 51702; 99283

== ENCOUNTER 2020-03-17 13:00 | Emergency (ER) | payer MEDICARE, BC ==
[2020-03-17 13:12] VITALS: BP 177/98; PULSE 93
[2020-03-17] MEDS ORDERED: Levofloxacin 750 MG Tab PO ONE (13:23)
--- NOTE | 2020-03-17 13:29 | EDM.PDOC ---
ED HPI GENERAL MEDICAL PROBLEM - General Chief Complaint: Genitourinary Problem Stated Complaint: CATHETER ISSUES Time Seen by Provider: 03/17/20 13:10 Source of Information: Reports: Patient, Old Records, RN Notes Reviewed History Limitations: Reports: No Limitations - History of Present Illness INITIAL COMMENTS - FREE TEXT/NARRATIVE: Patient is a 69-year-old male who presents to the ED with his for the evaluation of his Vallejo catheter issue. Patient has been seen here the past 3 days now, for issues with a Vallejo catheter. He was seen initially on Tuesday for urinary retention, had a Vallejo catheter placed. He presented yesterday again due to blockage, and had another Vallejo catheter placed. He did have labs and urinalysis on initial day which showed no infection. He has had recent surgery and underwent generalized anesthesia, and is likely that this is a neurogenic bladder issue in nature. He states that he does see Dr. Bird at [facility] tomorrow in consultation. Patient states that he believes the last drainage he got out of this was around 9 AM this morning, and it is now blood- tinged, with some small clots. He is also complaining of some bladder spasms, for which he has been having. He does take Flomax. There is 125 mils of blood- tinged urine in the Vallejo bag today. Patient does note that there is some clear drainage coming from around the tube from the tip of the penis, but he denies any other discharge. There is no redness or swelling to the foreskin, it is also retractable. He denies any fevers/chills, cough/shortness of breath, nausea/vomiting/diarrhea. Lower Abdomen Pain Score (Numeric/FACES): 8 - Related Data Allergies Allergy/AdvReac Type Severity Reaction Status Date / Time No Known Allergies Allergy Verified 03/17/20 13:23 Home Meds: Home Meds Tamsulosin [Tamsulosin 24 Hr] 0.4 mg PO Q24H #30 cap.er 01/17/20 [Rx] Cyclobenzaprine HCl 10 mg PO DAILY 03/15/20 [History] Meloxicam 15 mg PO DAILY 03/15/20 [History] Past Medical History HEENT History: Reports: Impaired Vision Respiratory History: Reports: Bronchitis, Recurrent Genitourinary History: Reports: Retention, Urinary Endocrine/Metabolic History: Reports: Obesity/BMI 30+ - Past Surgical History Musculoskeletal Surgical History: Reports: Joint Replacement, Knee Replacement, Shoulder Replacement, Shoulder Surgery Social & Family History - Caffeine Use Caffeine Use: Reports: Tea ED ROS GENERAL - Review of Systems Review Of Systems: Comprehensive ROS is negative, except as noted in HPI. ED EXAM, RENAL/ - Physical Exam Exam: See Below Exam Limited By: No Limitations General Appearance: Alert, WD/WN, No Apparent Distress (pt does appear to be in a mild amount of pain when he has a bladder spasm.) Respiratory/Chest: No Respiratory Distress, Lungs Clear, Normal Breath Sounds, No Accessory Muscle Use, Chest Non-Tender Cardiovascular: Normal Peripheral Pulses, Regular Rate, Rhythm, No Murmur GI/Abdominal: Normal Bowel Sounds, Soft, Non-Tender, No Distention, No Mass (Male) Exam: Normal Inspection. No: Circumcised Extremities: Normal Inspection, Normal Capillary Refill Neurological: Alert, Oriented, Normal Cognition, No Motor/Sensory Deficits Psychiatric: Normal Affect, Normal Mood Skin Exam: Warm, Dry, Intact, Normal Color, No Rash Course - Vital Signs Last Recorded V/S: Last Vital Signs Temp 97.7 F 03/17/20 13:10 Pulse 93 03/17/20 13:10 Resp 16 03/17/20 13:10 BP 177/98 H 03/17/20 13:10 Pulse Ox 94 L 03/17/20 13:10 - Orders/Labs/Meds Meds: Medications Discontinued Medications Generic Name Dose Route Start Last Admin Trade Name Nicholas PRN Reason Stop Dose Admin Levofloxacin 750 mg 03/17/20 13:23 03/17/20 13:47 Levaquin PO 03/17/20 13:24 750 mg ONETIME ONE Administration - Re-Assessments/Exams Free Text/Narrative Re-Assessment/Exam: 03/17/20 13:28 Patient presents to the ED for the evaluation of his ongoing urinary/Vallejo catheter issues. I will have nursing staff troubleshoot the catheter, will ultimately replace it if she cannot get the catheter draining again. As the patient has had recent instrumentation/catheter insertion, x2. He will be given a one-time dose of Levaquin 750 mg. 03/17/20 13:53 The nurse did report she was able to advance the Vallejo catheter, she states it was caught in the prostate and not inserted all the way. She notes after this should have 750 mils of urine that was becoming less bloody. Departure - Departure Time of Disposition: 13:34 Disposition: Home, Self-Care 01 Condition: Good Clinical Impression: Vallejo catheter problem Qualifiers: Encounter type: initial encounter Qualified Code(s): T83.9XXA - Unspecified complication of genitourinary prosthetic device, implant and graft, initial encounter - Discharge Information *PRESCRIPTION DRUG MONITORING PROGRAM REVIEWED*: No *COPY OF PRESCRIPTION DRUG MONITORING REPORT IN PATIENT CATHLEEN: No Instructions: Indwelling Urinary Catheter Care, Adult, [id number] Referrals: Malena Mercado NP [Primary Care Provider] - Forms: ED Department Discharge Additional Instructions: You were evaluated in the ER regarding your Vallejo catheter issue. We did again troubleshoot your Vallejo, and it is flowing freely at this time. You were given a one-time dose of Levaquin in the ER, as you have had recent catheter insertion x2, this is more for prophylaxis, then treating any sort of suspected infection. Please keep your appointment Dr. Bird tomorrow, with regards to your urinary issues. Please return to the ER at any time if your symptoms change or worsen. Sepsis Event Note (ED) - Evaluation Sepsis Screening Result: No Definite Risk - Focused Exam Vital Signs: Vital Signs Temp Pulse Resp BP Pulse Ox 03/17/20 13:10 97.7 F 93 16 177/98 H 94 L
== END 2020-03-17 13:50 | disposition home or self-care (01) ==
LOC: JD.ED 13:00
DX: T83.098A Other mechanical complication of other urinary catheter, initial encounter (principal); E66.9 Obesity, unspecified; Z79.899 Other long term (current) drug therapy
CPT/HCPCS: 99283; A9270

== ENCOUNTER 2020-03-18 13:54 | Emergency (ER) | payer MEDICARE, BC | END 2020-03-18 14:20 | disposition home or self-care (01) | LOC: JD.ED 13:54 | DX: Z53.21 Procedure and treatment not carried out due to patient leaving prior to being seen by health care provider (principal) ==

== ENCOUNTER 2020-03-21 11:58 | Emergency (ER) | payer MEDICARE, BC ==
[2020-03-21 12:07] VITALS: BP 156/98; PULSE 95
--- NOTE | 2020-03-21 12:47 | EDM.PDOC ---
ED HPI GENERAL MEDICAL PROBLEM - General Chief Complaint: Genitourinary Problem Stated Complaint: CATHETER ISSUES Time Seen by Provider: 03/21/20 12:29 Source of Information: Reports: Patient, RN Notes Reviewed History Limitations: Reports: No Limitations - History of Present Illness INITIAL COMMENTS - FREE TEXT/NARRATIVE: Patient is a 69-year-old male who presents to the ED for the evaluation of his Engel catheter issue. Patient states that he has a Engel catheter in place due to urinary retention, he has seen Dr. Bird, his urologist, and the plan is to have the catheter taken out sometime next week Tuesday to see if he still in retention. Patient states that he inadvertently stepped on the catheter tubing at around 10 AM this morning, and now the catheter seems to be leaking around the catheter at the tip of the penis. He does note blood within the urine drain bag as well. Patient denies any other discharge, urinary pain or other issues. He denies fever/chills, cough/shortness of breath, nausea/vomiting/diarrhea, or any abdominal pain. - Related Data Allergies Allergy/AdvReac Type Severity Reaction Status Date / Time No Known Allergies Allergy Verified 03/17/20 13:23 Home Meds: Home Meds Tamsulosin [Tamsulosin 24 Hr] 0.4 mg PO Q24H #30 cap.er 01/17/20 [Rx] Cyclobenzaprine HCl 10 mg PO DAILY 03/15/20 [History] Meloxicam 15 mg PO DAILY 03/15/20 [History] Past Medical History - Past Health History Medical/Surgical History: Denies Medical/Surgical History HEENT History: Reports: Impaired Vision Cardiovascular History: Reports: None Respiratory History: Reports: Bronchitis, Recurrent Gastrointestinal History: Reports: None Genitourinary History: Reports: Retention, Urinary, Other (See Below) Other Genitourinary History: Catheter in place Neurological History: Reports: None Psychiatric History: Reports: None Endocrine/Metabolic History: Reports: Obesity/BMI 30+ Hematologic History: Reports: None Immunologic History: Reports: None Oncologic (Cancer) History: Reports: None Dermatologic History: Reports: None - Past Surgical History Musculoskeletal Surgical History: Reports: Joint Replacement, Knee Replacement, Shoulder Replacement, Shoulder Surgery Social & Family History - Family History Family Medical History: Noncontributory - Tobacco Use Smoking Status *Q: Former Smoker Used Tobacco, but Quit: Yes Month/Year Tobacco Last Used: 1994 - Caffeine Use Caffeine Use: Reports: Tea ED ROS GENERAL - Review of Systems Review Of Systems: Comprehensive ROS is negative, except as noted in HPI. ED EXAM, RENAL/ - Physical Exam Exam: See Below Exam Limited By: No Limitations General Appearance: Alert, WD/WN, No Apparent Distress Respiratory/Chest: No Respiratory Distress, Lungs Clear, Normal Breath Sounds, No Accessory Muscle Use, Chest Non-Tender Cardiovascular: Normal Peripheral Pulses, Regular Rate, Rhythm, No Murmur GI/Abdominal: Normal Bowel Sounds, Soft, Non-Tender, No Distention, No Mass (Male) Exam: Normal Inspection, Urethral Discharge (slight clear drainage coming from urethra, no pain, no prurlence.) Neurological: Alert, Oriented, Normal Cognition, No Motor/Sensory Deficits Psychiatric: Normal Affect, Normal Mood Skin Exam: Warm, Dry, Intact, Normal Color, No Rash Course - Vital Signs Last Recorded V/S: Last Vital Signs Temp 97.7 F 03/21/20 12:04 Pulse 95 03/21/20 12:04 Resp 16 03/21/20 12:04 BP 156/98 H 03/21/20 12:04 Pulse Ox 93 L 03/21/20 12:04 - Orders/Labs/Meds Orders: Active Orders 24 hr Category Date Time Status Engel Catheter Insertion [Insert Urinary Catheter] [OM. Care 03/21/20 12:45 Ordered PC] Q24H Urinary Catheter Assessment [RC] ASDIRECTED Care 03/21/20 12:42 Active - Re-Assessments/Exams Free Text/Narrative Re-Assessment/Exam: 03/21/20 12:46 Patient presents to the ED for a engel catheter problem. Will have nursing staff troubleshoot the catheter, if the balloon has ruptured we will replace the catheter, or try to advance it as he may have just dislodged it. 03/21/20 13:24 Nursing staff reports that they were able to advance the catheter, and it does not seem to be leaking around the tube any longer. Patient has been observed in the ER for about 1/2-hour after the catheter was manipulated. This appears to have stopped the leaking, and the urine is free flowing into the bag at this time and has cleared up with some of the blood as well. He will be given another sticker for securing of the Engel to his leg, and discharged home with general recommendations. Departure - Departure Time of Disposition: 13:25 Disposition: Home, Self-Care 01 Condition: Good Clinical Impression: Engel catheter problem Qualifiers: Encounter type: initial encounter Qualified Code(s): T83.9XXA - Unspecified complication of genitourinary prosthetic device, implant and graft, initial encounter - Discharge Information *PRESCRIPTION DRUG MONITORING PROGRAM REVIEWED*: No *COPY OF PRESCRIPTION DRUG MONITORING REPORT IN PATIENT CATHLEEN: No Referrals: Malena Mercado NP [Primary Care Provider] - Forms: ED Department Discharge Additional Instructions: You were evaluated in the ER today for your Engel catheter problem. We did troubleshoot the catheter, and it is flowing freely once again. You were given another securing device for the engel, please use as needed if the current sticker becomes soiled. The bleeding you are experiencing is likely due to urethral trauma due to dislodging it slightly, by stepping on the tubing. This should clear up by itself. Please return to the ER if you should have any other issues. Sepsis Event Note (ED) - Evaluation Sepsis Screening Result: No Definite Risk - Focused Exam Vital Signs: Vital Signs Temp Pulse Resp BP Pulse Ox 03/21/20 12:04 97.7 F 95 16 156/98 H 93 L - My Orders Last 24 Hours: My Active Orders 03/21/20 12:42 Urinary Catheter Assessment [RC] ASDIRECTED 03/21/20 12:45 Engel Catheter Insertion [Insert Urinary Catheter] [OM.PC] Q24H - Assessment/Plan Last 24 Hours: My Active Orders 03/21/20 12:42 Urinary Catheter Assessment [RC] ASDIRECTED 03/21/20 12:45 Engel Catheter Insertion [Insert Urinary Catheter] [OM.PC] Q24H
== END 2020-03-21 14:10 | disposition home or self-care (01) ==
LOC: JD.ED 11:58
DX: T83.9XXA Unspecified complication of genitourinary prosthetic device, implant and graft, initial encounter (principal); R36.9 Urethral discharge, unspecified; R33.9 Retention of urine, unspecified; E66.9 Obesity, unspecified; Z87.891 Personal history of nicotine dependence; Z79.899 Other long term (current) drug therapy
CPT/HCPCS: 51702; 99283

== ENCOUNTER 2020-03-23 16:15 | Emergency (ER) | payer MEDICARE, BC ==
[2020-03-23 16:31] VITALS: BP 159/96; PULSE 89
--- NOTE | 2020-03-23 16:50 | EDM.PDOC ---
ED HPI GENERAL MEDICAL PROBLEM - General Chief Complaint: Genitourinary Problem Stated Complaint: CATH ISSUES Time Seen by Provider: 03/23/20 16:27 Source of Information: Reports: Patient, RN Notes Reviewed History Limitations: Reports: No Limitations - History of Present Illness INITIAL COMMENTS - FREE TEXT/NARRATIVE: Patient is a 69-year-old male who presents to the ED for the evaluation of a Engel catheter issue. Patient notes that at around 10 AM this morning, his catheter seem to start leaking around the catheter. He states he was urinating, and he felt what he thought was a bladder spasm, and then noticed that he was leaking around the catheter as well. He does not note any cloudiness to the urine, no bleeding, or foul smell coming from the urine draining around the catheter. But he does note that he is soiling himself nonetheless. Patient states that since then every time he voids or feel the need to void, urine draining around the catheter. He is to see his urologist, Dr. Bird this Tuesday to have this possibly taken out, to see if he needs one any further. He was recently seen in this ER by myself, this last Tuesday, and had a catheter replaced for some of the same issues. - Related Data Allergies Allergy/AdvReac Type Severity Reaction Status Date / Time No Known Allergies Allergy Verified 03/23/20 16:31 Home Meds: Home Meds Tamsulosin [Tamsulosin 24 Hr] 0.4 mg PO Q24H #30 cap.er 01/17/20 [Rx] Cyclobenzaprine HCl 10 mg PO DAILY PRN 03/15/20 [History] Meloxicam 15 mg PO DAILY PRN 03/15/20 [History] Finasteride 1 mg PO DAILY 03/23/20 [History] Past Medical History - Past Health History Medical/Surgical History: Denies Medical/Surgical History HEENT History: Reports: Impaired Vision Cardiovascular History: Reports: Heart Murmur Respiratory History: Reports: Bronchitis, Recurrent Gastrointestinal History: Reports: None Genitourinary History: Reports: Retention, Urinary, Other (See Below) Other Genitourinary History: Catheter in place Neurological History: Reports: None Psychiatric History: Reports: None Endocrine/Metabolic History: Reports: Obesity/BMI 30+ Hematologic History: Reports: None Immunologic History: Reports: None Oncologic (Cancer) History: Reports: None Dermatologic History: Reports: None - Past Surgical History Musculoskeletal Surgical History: Reports: Joint Replacement, Knee Replacement, Shoulder Replacement, Shoulder Surgery, Other (See Below) Other Musculoskeletal Surgeries/Procedures:: elbow sx Social & Family History - Family History Family Medical History: Noncontributory - Tobacco Use Smoking Status *Q: Former Smoker Used Tobacco, but Quit: Yes Month/Year Tobacco Last Used: 1994 - Caffeine Use Caffeine Use: Reports: None - Recreational Drug Use Recreational Drug Use: No ED ROS GENERAL - Review of Systems Review Of Systems: Comprehensive ROS is negative, except as noted in HPI. ED EXAM, RENAL/ - Physical Exam Exam: See Below Exam Limited By: No Limitations General Appearance: Alert, WD/WN, No Apparent Distress Respiratory/Chest: No Respiratory Distress, Lungs Clear, Normal Breath Sounds, No Accessory Muscle Use, Chest Non-Tender Cardiovascular: Normal Peripheral Pulses, Regular Rate, Rhythm, No Murmur GI/Abdominal: Normal Bowel Sounds, Soft, Non-Tender, No Distention, No Mass (Male) Exam: Other (engel catheter in place, no drainage or redness noted). No: Urethral Discharge Extremities: Normal Inspection, Normal Capillary Refill Neurological: Alert, Oriented, Normal Cognition, No Motor/Sensory Deficits Psychiatric: Normal Affect, Normal Mood Skin Exam: Warm, Dry, Intact, Normal Color, No Rash Course - Vital Signs Last Recorded V/S: Last Vital Signs Temp 97.4 F 03/23/20 16:28 Pulse 89 03/23/20 16:28 Resp 19 03/23/20 16:28 BP 159/96 H 03/23/20 16:28 Pulse Ox 92 L 03/23/20 16:28 - Orders/Labs/Meds Orders: Active Orders 24 hr Category Date Time Status CULTURE URINE [RM] Routine Lab 03/23/20 17:50 Ordered Labs: Laboratory Tests 03/23/20 Range/Units 17:20 Urine Color Yellow (Yellow) Urine Appearance Cloudy H (Clear) Urine pH 7.5 (5.0-8.0) Ur Specific [place] 1.020 (1.005-1.030) Urine Protein 2+ H (Negative) Urine Glucose (UA) Negative (Negative) Urine Ketones Negative (Negative) Urine Occult Blood 3+ H (Negative) Urine Nitrite Negative (Negative) Urine Bilirubin Negative (Negative) Urine Urobilinogen 0.2 (0.2-1.0) Ur Leukocyte Esterase 1+ H (Negative) Urine RBC 50-75 H (0-5) /hpf Urine WBC 0-5 (0-5) /hpf Ur Squamous Epith Cells Not seen (0-5) /hpf Urine Bacteria Few (FEW) /hpf Urine Mucus Not seen (FEW) /hpf - Re-Assessments/Exams Free Text/Narrative Re-Assessment/Exam: 03/23/20 16:50 Patient presents to the ED again for Engel catheter issues. As he has had multiple manipulations of this, we will check a urinalysis at today's visit to make sure there is no sign of a UTI. I do highly suspect now since this is an ongoing issue, that the placement of the Engel catheter is positional, and that the balloon is not sitting in the bladder neck, and is not seating properly, causing the catheter to leak around while he is urinating. I did pull the catheter down, it does seem to be seated around the bladder neck, and there is seems to be no issue with drainage right now. We will try to observe the patient for a while, before we think about trying to replace the catheter with a new one. If we should decide to do this, will recommend doing the next size up. He has a 16 Wolof Engel in at this time. 03/23/20 18:06 Urinalysis shows 50-75 red blood cells per high-power field, 1+ leukocyte Estrace. We will send the urine for culture as it is a fully catheterized specimen. To make sure that there is not just colonization maria del rosario. I did speak with Dr. Bird, as he was a urologist organizational development consultant at [facility], and he states that the patient will likely have a little bit of leakage around the catheter due to bladder spasms, he did state the patient could be started on B&O s uppositories, or oxybutynin, but that would put him at increased risk for failure of getting his catheter taken out on Tuesday definitively. I did discuss options with the patient, he states he would like the catheter out on Tuesday. Dr. Bird said that if the catheter itself is not draining, that that would be cause for concern to come back to the ER, otherwise a little bit of leakage is okay and he should wear depends or a pad. The patient and his seem to be on board with this. She notes that she was trying to push fluids to get him to keep urinating. I told her may be cut back on the fluids a little bit so he is not urinating as often, and definitely not given anything that has caffeine in it. Departure - Departure Time of Disposition: 18:08 Disposition: Home, Self-Care 01 Condition: Good Clinical Impression: Engel catheter problem Qualifiers: Encounter type: initial encounter Qualified Code(s): T83.9XXA - Unspecified complication of genitourinary prosthetic device, implant and graft, initial encounter - Discharge Information *PRESCRIPTION DRUG MONITORING PROGRAM REVIEWED*: No *COPY OF PRESCRIPTION DRUG MONITORING REPORT IN PATIENT CATHLEEN: No Instructions: Indwelling Urinary Catheter Care, Adult Forms: ED Department Discharge Additional Instructions: You were evaluated in the ER today regarding your Engel catheter leakage. You did have a urinalysis taken at today's visit, and it did demonstrate a few red blood cells, but no obvious sign of infection. We have sent this for culture for confirmation, as Engel catheters can get a small film of bacteria, that is okay to be there. I spoke with your urologist, Dr. Bird through [facility] at today's visit, and he states that the little bit of leakage is due to the bladder spasms you are experiencing. There are medications that you can be trialed on, but this will increase your risk of failure for getting the catheter removed on Tuesday. Recommend you wear a pad in your underwear, or wear depends for the next few days to try to catch some of this drainage. The reason you would need come back to the ER for your catheter problem is if the Engel catheter is not draining at all. As this would likely need irrigation. Please return to the ER at any time if your symptoms change or worsen. Sepsis Event Note (ED) - Evaluation Sepsis Screening Result: No Definite Risk - Focused Exam Vital Signs: Vital Signs Temp Pulse Resp BP Pulse Ox 03/23/20 16:28 97.4 F 89 19 159/96 H 92 L - My Orders Last 24 Hours: My Active Orders 03/23/20 17:50 CULTURE URINE [RM] Routine - Assessment/Plan Last 24 Hours: My Active Orders 03/23/20 17:50 CULTURE URINE [RM] Routine
[2020-03-23] MEDS ORDERED: Levofloxacin 750 MG Tab PO ONE (18:09)
== END 2020-03-23 18:20 | disposition home or self-care (01) ==
LOC: JD.ED 16:15
DX: T83.038A Leakage of other urinary catheter, initial encounter (principal); E66.9 Obesity, unspecified; Z87.891 Personal history of nicotine dependence; Z79.899 Other long term (current) drug therapy; Z68.41 Body mass index [BMI] 40.0-44.9, adult
CPT/HCPCS: 81001; 87086; 99283; A9270; 99282

== ENCOUNTER 2020-03-24 13:45 | Emergency (ER) | payer MEDICARE, BC ==
[2020-03-24 14:02] VITALS: BP 160/96; PULSE 94
--- NOTE | 2020-03-24 14:49 | EDM.PDOC ---
ED HPI GENERAL MEDICAL PROBLEM - General Chief Complaint: Genitourinary Problem Stated Complaint: CATHETER ISSUES Time Seen by Provider: 03/24/20 13:49 Source of Information: Reports: Patient, Family History Limitations: Reports: No Limitations - History of Present Illness INITIAL COMMENTS - FREE TEXT/NARRATIVE: Patient is a 69-year-old male who presents to the emergency department with complaints of his Engel catheter not draining. He has been seen in this emergency department a number of occasions with similar complaints. Engel catheter was placed for urinary retention and he is scheduled to see urology this Tuesday to discuss having the catheter removed. He states that after visiting our ER yesterday, the catheter drained well throughout the evening. This morning, he had the urge to void, however catheter would not drain. He did have a couple bladder spasms as well. When he was seen in the ER yesterday, urinalysis was done and urine was sent for culture. His urologist was consulted and he advised that some leakage around the catheter is normal, however he should be seen for catheter not draining. Patient states that he did purchase depends and has had a small amount of leaking around the catheter. He denies any fever, chills, nausea, or vomiting. Penis Pain Score (Numeric/FACES): 3 - Related Data Allergies Allergy/AdvReac Type Severity Reaction Status Date / Time No Known Allergies Allergy Verified 03/24/20 14:02 Home Meds: Home Meds Tamsulosin [Tamsulosin 24 Hr] 0.4 mg PO Q24H #30 cap.er 01/17/20 [Rx] Cyclobenzaprine HCl 10 mg PO DAILY PRN 03/15/20 [History] Meloxicam 15 mg PO DAILY PRN 03/15/20 [History] Finasteride 1 mg PO DAILY 03/23/20 [History] Past Medical History - Past Health History Medical/Surgical History: Denies Medical/Surgical History HEENT History: Reports: Impaired Vision Cardiovascular History: Reports: Heart Murmur Respiratory History: Reports: Bronchitis, Recurrent Gastrointestinal History: Reports: None Genitourinary History: Reports: Retention, Urinary, Other (See Below) Other Genitourinary History: Catheter in place Neurological History: Reports: None Psychiatric History: Reports: None Endocrine/Metabolic History: Reports: Obesity/BMI 30+ Hematologic History: Reports: None Immunologic History: Reports: None Oncologic (Cancer) History: Reports: None Dermatologic History: Reports: None - Past Surgical History Musculoskeletal Surgical History: Reports: Joint Replacement, Knee Replacement, Shoulder Replacement, Shoulder Surgery, Other (See Below) Other Musculoskeletal Surgeries/Procedures:: elbow sx Social & Family History - Family History Family Medical History: Noncontributory - Tobacco Use Smoking Status *Q: Former Smoker Used Tobacco, but Quit: Yes Month/Year Tobacco Last Used: 1994 - Caffeine Use Caffeine Use: Reports: Soda, Tea - Recreational Drug Use Recreational Drug Use: No Drug Use in Last 12 Months: No ED ROS GENERAL - Review of Systems Review Of Systems: See Below Constitutional: Reports: No Symptoms. Denies: Fever, Chills, Weakness HEENT: Reports: No Symptoms Respiratory: Reports: No Symptoms Cardiovascular: Reports: No Symptoms Endocrine: Reports: No Symptoms GI/Abdominal: Reports: No Symptoms : Reports: Urinary Retention, Other (Engel catheter not draining) Musculoskeletal: Reports: No Symptoms Skin: Reports: No Symptoms Neurological: Reports: No Symptoms Psychiatric: Reports: No Symptoms Hematologic/Lymphatic: Reports: No Symptoms Immunologic: Reports: No Symptoms ED EXAM, RENAL/ - Physical Exam Exam: See Below Exam Limited By: No Limitations General Appearance: Alert, WD/WN, No Apparent Distress Respiratory/Chest: No Respiratory Distress, Lungs Clear, Normal Breath Sounds, No Accessory Muscle Use, Chest Non-Tender Cardiovascular: Normal Peripheral Pulses, Regular Rate, Rhythm, No Edema, No Gallop, No JVD, No Murmur, No Rub (Male) Exam: Other (Engel catheter draining clear yellow urine. Small blood clot noted in the catheter bag. No redness, swelling, or drainage to the urethral meatus.) Neurological: Alert, Oriented, CN II-XII Intact, Normal Cognition, Normal Gait, Normal Reflexes, No Motor/Sensory Deficits Psychiatric: Normal Affect, Normal Mood Skin Exam: Warm, Dry, Intact, Normal Color, No Rash Course - Vital Signs Last Recorded V/S: Last Vital Signs Temp 98.5 F 03/24/20 13:56 Pulse 94 03/24/20 13:56 Resp 22 H 03/24/20 13:56 BP 160/96 H 03/24/20 13:56 Pulse Ox 92 L 03/24/20 13:56 - Re-Assessments/Exams Free Text/Narrative Re-Assessment/Exam: Patient is a 69-year-old male who presents to the emergency department with complaints of his Engel cath not draining. He has been seen in this ER on a number of occasions for similar complaints after Engel catheter was placed due to urinary retention. Plan is for him to have the catheter removed at his urologist office this coming Tuesday. He states that this morning he had the urge to void, however the catheter would not drain. Between the time that the triage nurse left the room and I presented for exam, the patient states that a small blood clot did pass to the tubing and the catheter has been draining well since that time. On exam, there is a small blood clot in the catheter bag, however the urine is clear yellow in color. We will allow his bladder to empty completely and then nursing will irrigate the Engel catheter well to ensure that it is patent and flowing well. Urine culture that was completed yesterday shows no growth at 24 hours. Plan will be to discharge him home with instructions to follow-up with his urologist as long as his catheter continues to flow well. 03/24/20 14:51 Urinary catheter was irrigated by ALEJANDRO Merino. No further blood clots return. Catheter is flowing well. Patient denies any urge to void. We will discharge him home with instructions to return should the catheter stop draining again. Otherwise he should follow-up with his urologist this coming Tuesday as planned. He will be notified if urine culture should grow bacteria that requires treatment. Discharge instructions as documented. Departure - Departure Time of Disposition: 14:52 Disposition: Home, Self-Care 01 Condition: Good Clinical Impression: Engel catheter problem Qualifiers: Encounter type: initial encounter Qualified Code(s): T83.9XXA - Unspecified complication of genitourinary prosthetic device, implant and graft, initial encounter - Discharge Information *PRESCRIPTION DRUG MONITORING PROGRAM REVIEWED*: No *COPY OF PRESCRIPTION DRUG MONITORING REPORT IN PATIENT CATHLEEN: No Instructions: Indwelling Urinary Catheter Care, Adult Referrals: Malena Mercado NP [Primary Care Provider] - Additional Instructions: You were seen in the emergency department today for your engel catheter not draining. While in the ER, the catheter did start draining after you passed a small blood clot. Your Engel catheter was irrigated well and appears to be functioning correctly at this time. The urine culture that was collected yesterday has not grown any bacteria thus far. If this should change, you will be notified and started on an antibiotic as needed. Recommend that you keep your appointment with urology this Tuesday to discuss having the catheter removed. If the catheter should stop draining again, please not hesitate to return to the emergency department. Sepsis Event Note (ED) - Evaluation Sepsis Screening Result: No Definite Risk - Focused Exam Vital Signs: Vital Signs Temp Pulse Resp BP Pulse Ox 03/24/20 13:56 98.5 F 94 22 H 160/96 H 92 L
== END 2020-03-24 15:00 | disposition home or self-care (01) ==
LOC: JD.ED 13:45
DX: T83.098A Other mechanical complication of other urinary catheter, initial encounter (principal); E66.9 Obesity, unspecified; Z68.41 Body mass index [BMI] 40.0-44.9, adult; Z87.891 Personal history of nicotine dependence; Z79.899 Other long term (current) drug therapy
CPT/HCPCS: 99282; 99283

== ENCOUNTER 2024-12-02 10:56 | Inpatient (IN) | payer BC, MEDICARE ==
[2024-12-02 11:27] LABS: BASOPHILS ABSOLUTE AUTO 0.1 K/mm3 (0.0-0.2); BASOPHILS PERCENT AUTO 0.8 % (0.0-1.0); EOSINOPHILS ABSOLUTE AUTO 0.8 K/mm3 (0.0-0.4); EOSINOPHILS PERCENT AUTO 10.8 % (0.0-6.0); HEMOGLOBIN 13.9 gm/dl (14.0-18.0); IMMATURE GRAN ABSOLUTE AUTO 0.07 K/mm3 (0.00-0.05); LYMPHOCYTES ABSOLUTE AUTO 1.3 K/mm3 (1.0-4.8); LYMPHOCYTES PERCENT AUTO 18.6 % (24.0-44.0); MEAN CORPUSCULAR HGB CONC 30.9 g/dl (32.0-36.0); MEAN PLATELET VOLUME 8.8 fl (9.4-12.4); MONOCYTES ABSOLUTE AUTO 0.7 K/mm3 (0.0-0.8); MONOCYTES PERCENT AUTO 10.3 % (0.0-8.0); NEUTROPHILS ABSOLUTE AUTO 4.1 K/mm3 (1.8-7.7); NEUTROPHILS PERCENT AUTO 58.5 % (41.0-71.0); PLATELET COUNT,PLT 185 K/mm3 (150-400); RED BLOOD CELL COUNT 4.64 M/mm3 (4.52-5.90); WHITE BLOOD CELL COUNT,WBC 7.06 K/mm3 (3.9-11.3)
[2024-12-02] MEDS: Albuterol/Ipratropium 3.0-0.5 MG/3 ML Neb Soln NEB ONE (11:29)
[2024-12-02] MEDS: methylPREDNISolone Sodium Succinate 125 MG/2 ML SDV IVPUSH ONE (11:38)
[2024-12-02 11:52] LABS: INR 1.03; PROTHROMBIN TIME 10.9 SECONDS (9.7-12.0)
[2024-12-02 11:53] LABS: PTT,PARTIAL THROMBOPLSTIN TIME 26.8 SECONDS (21.7-31.4)
[2024-12-02 12:00] LABS: LACTIC ACID 1.6 mmol/L (0.4-2.0)
[2024-12-02 12:06] LABS: A/G RATIO 0.8 (1-2); ALBUMIN 2.9 g/dl (3.4-5.0); ANION GAP 10.6 (5-15); BILIRUBIN TOTAL 0.7 mg/dL (0.2-1.0); BUN/CREATININE RATIO 31.8 (14-18); CALCIUM 8.5 mg/dL (8.5-10.1); CREATININE 1.1 mg/dL (0.7-1.3); EST CRCL DRUG DOSING (CG) 58.73 mL/min; POTASSIUM,K 4.6 mEq/L (3.5-5.1); PROTEIN TOTAL,TP 6.6 g/dl (6.4-8.2)
[2024-12-02] MEDS: Furosemide 40 MG/4 ML VIAL IVPUSH ONE ×2 (12:07→18:47)
[2024-12-02 14:00] LABS: APPEARANCE,URINE CLEAR (Clear); BILIRUBIN,URINE NEGATIVE (Negative); COLOR,URINE YELLOW (Yellow); GLUCOSE,URINE NEGATIVE (Negative); KETONES,URINE NEGATIVE (Negative); LEUKOCYTE ESTERASE,URINE NEGATIVE (Negative); NITRITE,URINE NEGATIVE (Negative); OCCULT BLOOD,URINE 2+ (Negative); PROTEIN,URINE NEGATIVE (Negative); UROBILINOGEN,URINE 0.2 (0.2-1.0)
[2024-12-02 14:20] LABS: BACTERIA,URINE FEW /hpf (FEW); EPITHELIAL CELLS,URINE 0-5 /hpf (0-5); MUCUS,URINE FEW /hpf (FEW); RBC,URINE 0-5 /hpf (0-5); WBC,URINE 0-5 /hpf (0-5)
[2024-12-02] MEDS ORDERED: Acetaminophen 325 MG Tab PO PRN (14:27)
[2024-12-02] MEDS ORDERED: Polyethylene Glycol 3350 Powder 17 GM Packet PO PRN (14:27)
[2024-12-02 15:59] LABS: TSH 2.323 uIU/mL (0.358-3.74)
[2024-12-02] MEDS: Lisinopril 20 MG Tab PO SCH (16:20)
[2024-12-02 17:04] LABS: BASE EXCESS ARTERIAL 4.9 (-2-2.0); BICARBONATE,ARTERIAL 29.9 meq/L (22.0-26.0); O2 SATURATION ARTERIAL 94.5 % (96.0-97.0)
[2024-12-02] MEDS ORDERED: Sodium Chloride 0.9% 100 ML IV SCH (18:30)
[2024-12-02] MEDS: Iopamidol 755 Mg/ML 100 ML Bottle IVPUSH ONE (18:30)
[2024-12-02] MEDS: Sodium Chloride 0.9% 10 ML Syringe FLUSH ONE (18:48)
[2024-12-02] MEDS ORDERED: Aspirin 81 MG Tab.Chew PO SCH (19:30)
[2024-12-02] MEDS: atorvaSTATin 40 MG Tab PO SCH (20:04)
[2024-12-02] MEDS: Aspirin 81 MG Tab.EC PO SCH (20:04)
[2024-12-03 05:24] LABS: BASOPHILS PERCENT AUTO 0.3 % (0.0-1.0); HEMATOCRIT 45.8 % (42.0-52.0); HEMOGLOBIN 14.5 gm/dl (14.0-18.0); IMMATURE GRAN ABSOLUTE AUTO 0.07 K/mm3 (0.00-0.05); LYMPHOCYTES ABSOLUTE AUTO 0.9 K/mm3 (1.0-4.8); LYMPHOCYTES PERCENT AUTO 13.1 % (24.0-44.0); MEAN CORPUSCULAR HGB CONC 31.7 g/dl (32.0-36.0); MEAN CORPUSCULAR VOLUME 94.8 fl (83.0-99.0); MEAN PLATELET VOLUME 8.9 fl (9.4-12.4); MONOCYTES ABSOLUTE AUTO 0.8 K/mm3 (0.0-0.8); MONOCYTES PERCENT AUTO 11.3 % (0.0-8.0); NEUTROPHILS ABSOLUTE AUTO 5.2 K/mm3 (1.8-7.7); NEUTROPHILS PERCENT AUTO 74.3 % (41.0-71.0); PLATELET COUNT,PLT 231 K/mm3 (150-400); RED BLOOD CELL COUNT 4.83 M/mm3 (4.52-5.90); WHITE BLOOD CELL COUNT,WBC 7.01 K/mm3 (3.9-11.3)
[2024-12-03 06:04] LABS: ANION GAP 12.4 (5-15); CREATININE 1.1 mg/dL (0.7-1.3); EST CRCL DRUG DOSING (CG) 58.73 mL/min; POTASSIUM,K 4.4 mEq/L (3.5-5.1)
[2024-12-03] MEDS: Furosemide 40 MG/4 ML VIAL IVPUSH SCH (08:05)
[2024-12-03] MEDS: Enoxaparin 40 MG/0.4 ML Syringe SUBCUT SCH (08:05)
[2024-12-03] MEDS: methylPREDNISolone Sodium Succinate 40 MG/1 ML SDV IVPUSH SCH (08:05)
[2024-12-03] MEDS ORDERED: Cyclobenzaprine 10 MG Tab PO PRN (09:34)
[2024-12-03 09:53] LABS: CORONAVIRUS COVID-19 NAA NEGATIVE (NEGATIVE); INFLUENZA A NAA NEGATIVE (NEGATIVE); RESPIRATORY SYNCYTIAL VIR NAA NEGATIVE (NEGATIVE)
[2024-12-03] MEDS: Finasteride 5 MG Tab PO SCH (10:15)
[2024-12-03] MEDS: Tamsulosin 0.4 MG Cap.ER PO SCH (10:15)
[2024-12-03] MEDS: Melatonin 3 MG Tab PO PRN (20:25)
[2024-12-04 05:13] LABS: ANION GAP 11.5 (5-15); BUN/CREATININE RATIO 42.7 (14-18); C-REACTIVE PROTEIN 1.73 mg/dL (<0.30); CALCIUM 8.7 mg/dL (8.5-10.1); CREATININE 1.1 mg/dL (0.7-1.3); EST CRCL DRUG DOSING (CG) 58.73 mL/min; MAGNESIUM 2.2 mg/dL (1.8-2.4); PHOSPHORUS 4.1 mg/dL (2.6-4.7); POTASSIUM,K 4.5 mEq/L (3.5-5.1)
[2024-12-04] MEDS: predniSONE 20 MG Tab PO SCH (06:37)
[2024-12-04] MEDS: Rosuvastatin 10 MG Tab PO SCH (08:17)
[2024-12-04] MEDS: Furosemide 20 MG Tab PO SCH (08:17)
[2024-12-04] MEDS: cefTRIAXone 1 GM Vial IVPUSH SCH (10:59)
[2024-12-05 04:41] LABS: BASOPHILS ABSOLUTE AUTO 0.1 K/mm3 (0.0-0.2); BASOPHILS PERCENT AUTO 0.7 % (0.0-1.0); EOSINOPHILS ABSOLUTE AUTO 0.2 K/mm3 (0.0-0.4); EOSINOPHILS PERCENT AUTO 2.4 % (0.0-6.0); HEMATOCRIT 44.7 % (42.0-52.0); HEMOGLOBIN 13.9 gm/dl (14.0-18.0); IMMATURE GRAN ABSOLUTE AUTO 0.11 K/mm3 (0.00-0.05); IMMATURE GRAN PERCENT AUTO 1.3 % (0.0-0.4); LYMPHOCYTES ABSOLUTE AUTO 2.4 K/mm3 (1.0-4.8); LYMPHOCYTES PERCENT AUTO 28.3 % (24.0-44.0); MEAN CORPUSCULAR HEMOGLOBIN 29.7 pg (28.0-32.0); MEAN CORPUSCULAR HGB CONC 31.1 g/dl (32.0-36.0); MEAN CORPUSCULAR VOLUME 95.5 fl (83.0-99.0); MEAN PLATELET VOLUME 8.7 fl (9.4-12.4); MONOCYTES ABSOLUTE AUTO 0.9 K/mm3 (0.0-0.8); MONOCYTES PERCENT AUTO 10.4 % (0.0-8.0); NEUTROPHILS ABSOLUTE AUTO 4.8 K/mm3 (1.8-7.7); NEUTROPHILS PERCENT AUTO 56.9 % (41.0-71.0); PLATELET COUNT,PLT 216 K/mm3 (150-400); RED BLOOD CELL COUNT 4.68 M/mm3 (4.52-5.90); WHITE BLOOD CELL COUNT,WBC 8.38 K/mm3 (3.9-11.3)
[2024-12-05 05:07] LABS: A/G RATIO 0.7 (1-2); ALBUMIN 2.6 g/dl (3.4-5.0); ANION GAP 6.5 (5-15); BILIRUBIN TOTAL 0.4 mg/dL (0.2-1.0); BUN/CREATININE RATIO 44.5 (14-18); C-REACTIVE PROTEIN 1.09 mg/dL (<0.30); CALCIUM 8.5 mg/dL (8.5-10.1); CREATININE 1.1 mg/dL (0.7-1.3); EST CRCL DRUG DOSING (CG) 58.73 mL/min; POTASSIUM,K 4.5 mEq/L (3.5-5.1); PROTEIN TOTAL,TP 6.2 g/dl (6.4-8.2)
[2024-12-05 08:32] VITALS: BP 109/69
[2024-12-05 12:10] VITALS: PULSE 71
== END 2024-12-05 14:15 | disposition home or self-care (01) | DRG 196 ==
LOC: JD.ED 10:56 → JD.ICU 14:27
PROVIDERS: ADMIT Family Medicine; ATTEND Student in an Organized Health Care Education/Training Program
PROC: 4A033R1 Measurement of Arterial Saturation, Peripheral, Percutaneous Approach (ICD-10-PCS; principal; 2024-12-02)
DX: J84.9 Interstitial pulmonary disease, unspecified (principal); I50.31 Acute diastolic (congestive) heart failure; J18.9 Pneumonia, unspecified organism; J96.21 Acute and chronic respiratory failure with hypoxia; I50.9 Heart failure, unspecified; I25.10 Atherosclerotic heart disease of native coronary artery without angina pectoris; E78.5 Hyperlipidemia, unspecified; I11.0 Hypertensive heart disease with heart failure; N40.0 Benign prostatic hyperplasia without lower urinary tract symptoms; I27.20 Pulmonary hypertension, unspecified; M19.90 Unspecified osteoarthritis, unspecified site; H54.7 Unspecified visual loss; E66.9 Obesity, unspecified; Z96.659 Presence of unspecified artificial knee joint; Z96.619 Presence of unspecified artificial shoulder joint; Z98.890 Other specified postprocedural states; Z87.891 Personal history of nicotine dependence; Z79.899 Other long term (current) drug therapy; Z68.41 Body mass index [BMI] 40.0-44.9, adult
CPT/HCPCS: 0241U; 36415; 36600; 71045; 71046; 71275; 80048; 80053; 80061; 81001; 82803; 83605; 83735; 83880; 84100; 84443; 84484; 85025; 85379; 85610; 85652; 85730; 86140; 87428; 93005; 93306; 94640; 94667; 94668; 94761; 96374; 96375; 97110; 97116; 97162; 97530; 99285; 93010; 99223; 99232; 99233; 99239; A9270-GY; J0696; J1650; J1940; J2919; J7512; Q9967